=== PATIENT | male | born 1980 | race Two or more races ===

== ENCOUNTER 2025-02-10 19:43 | Emergency (ER) | payer BC ==
[~2025-02-10] VITALS: Ht 170.2 cm; Wt 79.8 kg
[2025-02-10 20:10] VITALS: BP 139/84; O2SAT 98
== END 2025-02-10 21:09 | disposition home or self-care (01) ==
LOC: ER 20:04
DX: K62.89 Other specified diseases of anus and rectum (principal); K59.00 Constipation, unspecified; K60.2 Anal fissure, unspecified; I51.9 Heart disease, unspecified; E78.5 Hyperlipidemia, unspecified
CPT/HCPCS: A4606; A4663